=== PATIENT | female | born 2000 | race Caucasian/White ===

== ENCOUNTER 2018-10-27 21:08 | Emergency (ER) | payer OTHER ==
[~2018-10-27] VITALS: Ht 162.6 cm; Wt 99.8 kg
[2018-10-27 21:16] VITALS: BP 110/70
--- NOTE | 2018-10-27 21:20 | NUR ---
TO LOBBY A/W BED , AMBULATORY, EKG DONE ERMD NOTED.
--- NOTE | 2018-10-28 00:25 | NUR ---
PATIENT CALLED TO HAVE VITAL SIGNS REASSESSED. PATIENT LEFT WITHOUT BEING SEEN BY DR. FISCHER. NO FURTHER CARE PROVIDED FOR PATIENT.
== END 2018-10-28 00:25 | disposition left against medical advice (07) ==
LOC: MED 21:08
DX: Z53.21 Procedure and treatment not carried out due to patient leaving prior to being seen by health care provider (principal)
CPT/HCPCS: 93005; 99284

== ENCOUNTER 2019-04-02 09:38 | Inpatient (IN) | payer OTHER ==
[~2019-04-02] VITALS: Ht 160 cm; Wt 110.2 kg
[2019-04-02] MEDS ORDERED: PREN-380 PO (10:45)
[2019-04-02] MEDS ORDERED: CARBOPROST 250 MCG/ML AMP IM PRN (10:45)
[2019-04-02] MEDS ORDERED: PROMETHAZINE 25 MG/ML VIAL IVP PRN (10:45)
[2019-04-02] MEDS ORDERED: METHYLERGONOVINE 0.2 MG/ML AMP IM PRN (10:45)
[2019-04-02 11:29] LABS: BASOPHILS % (AUTO) 0.3 % (0.0-2.0); EOSINOPHILS % (AUTO) 0.2 % (0.0-4.0); HEMATOCRIT 32.1 % (36-48); HEMOGLOBIN 10.7 g/dL (12.0-16.0); LYMPHOCYTES # (AUTO) 1.9 K/uL (2.5-16.5); LYMPHOCYTES % (AUTO) 24.5 % (20.5-51.1); MEAN CORPUSCULAR HEMOGLOBIN 29 pg (27-31); MEAN CORPUSCULAR HGB CONC 33 g/dL (33-37); MEAN CORPUSCULAR VOLUME 87.4 fL (80-94); MONOCYTES # (AUTO) 0.5 K/uL (0.8-1.0); MONOCYTES % (AUTO) 6.2 % (1.7-9.3); NEUTROPHILS # (AUTO) 5.3 K/uL (1.8-7.7); NEUTROPHILS % (AUTO) 68.8 % (42.2-75.2); PLATELET COUNT (AUTO) 332 K/uL (140-450); RED BLOOD CELL COUNT(AUTO) 3.68 MIL/uL (4.20-5.40); RED CELL DISTRIBUTION WIDTH 14.7 % (11.6-13.7); WHITE BLOOD COUNT (AUTO) 7.6 K/uL (4.5-11.0)
[2019-04-02 11:31] LABS: APPEARANCE,URINE SL CLOUDY (CLEAR); BILIRUBIN,URINE NEGATIVE (NEGATIVE); BLOOD, URINE 1+ (NEGATIVE); COLOR,URINE YELLOW (YELLOW); LEUKOCYTE ESTERASE ,URINE 3+ (NEGATIVE); NITRITE, URINE NEGATIVE (NEGATIVE); PH,URINE 6.5 (5.0-9.0); UGLUCOSE NEGATIVE (NEGATIVE)
[2019-04-02 11:41] LABS: RBC,URINE 0-5 /HPF (0-5)
[2019-04-02 11:45] LABS: TOTAL BILIRUBIN 0.3 mg/dL (0.0-1.0)
[2019-04-02 11:50] LABS: ALBUMIN 2.8 g/dL (3.4-5.0); ANION GAP 16.1 (8-16); CARBON DIOXIDE 23.9 mmol/L (21-32)
[2019-04-02 11:56] LABS: CREATININE 0.6 mg/dL (0.6-1.3)
[2019-04-02] MEDS ORDERED: MISOPROSTOL 25 MCG TAB VG SCH (12:00)
[2019-04-02] MEDS: LACTATED RINGERS 1,000 ML IV SCH ×2 (13:17→23:05)
[2019-04-02 13:57] VITALS: BP 128/71
[2019-04-02] MEDS ORDERED: OXYTOCIN 20 UNITS in LACTATED RINGERS 1,000 ML IV SCH (17:15)
[2019-04-02] MEDS ORDERED: fentaNYL 0.05 MG/ML VIAL IVP ONE (17:15)
[2019-04-02] MEDS ORDERED: fentaNYL 0.05 MG/ML VIAL ONE (17:21)
[2019-04-02] MEDS ORDERED: ROPIVACAINE 0.2%/NS PREMIX 100 ML EPI SCH ×2 (18:35→19:20)
[2019-04-02] MEDS ORDERED: EPIDURAL KEYS MC ONE (18:39)
[2019-04-03] MEDS ORDERED: OXYTOCIN 20 UNITS/LR PREMIX 1,000 ML IV ONE ×2 (00:19→13:59)
[2019-04-03] MEDS: LACTATED RINGERS 1,000 ML IV SCH (06:25)
--- NOTE | 2019-04-03 08:42 | NUR ---
PATIENT HAS BEEN SCREENED AND CATEGORIZED LOW NUTRITION RISK. PATIENT WILL BE SEEN WITHIN 7 DAYS OF ADMISSION. 04/09/[address]
[2019-04-03] MEDS ORDERED: MORPHINE PRES FREE 10 MG/10 ML AMP IV ONE (12:44)
[2019-04-03] MEDS ORDERED: MIDAZOLAM 2 MG/2 ML VIAL ONE (12:44)
[2019-04-03] MEDS ORDERED: LIDOCAINE 2% 100 MG/5 ML SYR IVP ONE (12:50)
[2019-04-03] MEDS ORDERED: OXYTOCIN 20 UNITS in DEXT 5% / LACT RING 1,000 ML IV SCH (12:56)
[2019-04-03] MEDS ORDERED: BUPRENORPHINE 0.3 MG/ML VIAL IV PRN (13:00)
[2019-04-03] MEDS ORDERED: SIMETHICONE 80 MG TAB.CHEW PO PRN (13:00)
[2019-04-03] MEDS ORDERED: METHYLERGONOVINE 0.2 MG/ML AMP IM PRN (13:00)
[2019-04-03] MEDS ORDERED: MAGNESIUM CITRATE 300 ML BTL PO SCH (13:00)
[2019-04-03] MEDS ORDERED: TEMAZEPAM 15 MG CAP PO PRN (13:00)
[2019-04-03] MEDS ORDERED: HYDROcodone/APAP 5/325 MG 1 TAB TAB PO PRN (13:00)
[2019-04-03] MEDS ORDERED: OXYTOCIN 20 UNITS in LACTATED RINGERS 1,000 ML IV SCH (13:32)
[2019-04-03] MEDS ORDERED: HYDROmorphone 1 MG/ML AMP IVP PRN (13:35)
[2019-04-03] MEDS ORDERED: MEPERIDINE 25 MG/ML SYR IVP PRN (13:35)
[2019-04-03] MEDS ORDERED: NALBUPHINE 10 MG/ML AMP IVP PRN (13:35)
[2019-04-03] MEDS ORDERED: diphenhydrAMINE 50 MG/ML VIAL IVP PRN ×2 (13:35)
[2019-04-03] MEDS ORDERED: NALOXONE 0.4 MG/ML VIAL IVP PRN ×3 (13:35)
[2019-04-03] MEDS ORDERED: ONDANSETRON 4 MG/2 ML VIAL IVP PRN ×2 (13:35)
[2019-04-03] MEDS ORDERED: KETOROLAC 60 MG/2 ML VIAL IM ONE (14:33)
[2019-04-03] MEDS ORDERED: ceFAZolin 1,000 MG VIAL ONE (20:02)
[2019-04-03] MEDS ORDERED: SENNA 8.6 MG TAB PO SCH (21:00)
[2019-04-03] MEDS: KETOROLAC 30 MG/ML VIAL IM/IVP SCH (21:00)
[2019-04-04] MEDS ORDERED: OXYTOCIN 20 UNITS/LR PREMIX 1,000 ML IV ONE (00:22)
[2019-04-04] MEDS: KETOROLAC 30 MG/ML VIAL IM/IVP SCH ×3 (02:33→14:43)
[2019-04-04] MEDS ORDERED: ceFAZolin 1,000 MG VIAL ONE (05:11)
[2019-04-04 07:03] LABS: BASOPHILS % (AUTO) 0.4 % (0.0-2.0); EOSINOPHILS % (AUTO) 0.3 % (0.0-4.0); HEMATOCRIT 24.9 % (36-48); HEMOGLOBIN 8.4 g/dL (12.0-16.0); LYMPHOCYTES # (AUTO) 1.5 K/uL (2.5-16.5); LYMPHOCYTES % (AUTO) 13.7 % (20.5-51.1); MEAN CORPUSCULAR HEMOGLOBIN 30 pg (27-31); MEAN CORPUSCULAR HGB CONC 34 g/dL (33-37); MONOCYTES # (AUTO) 0.8 K/uL (0.8-1.0); MONOCYTES % (AUTO) 6.8 % (1.7-9.3); NEUTROPHILS # (AUTO) 8.8 K/uL (1.8-7.7); NEUTROPHILS % (AUTO) 78.8 % (42.2-75.2); PLATELET COUNT (AUTO) 245 K/uL (140-450); RED BLOOD CELL COUNT(AUTO) 2.83 MIL/uL (4.20-5.40); RED CELL DISTRIBUTION WIDTH 14.7 % (11.6-13.7); WHITE BLOOD COUNT (AUTO) 11.1 K/uL (4.5-11.0)
[2019-04-04] MEDS: oxyCODONE/APAP 5/325 MG 1 TAB TAB PO PRN (19:45)
[2019-04-04] MEDS: CALCIUM POLYCARBOPHIL 625 MG TAB PO SCH (21:05)
[2019-04-04] MEDS: DOCUSATE SOD/SENNA 50/8.6 MG 1 TAB PO SCH (21:05)
[2019-04-04] MEDS: BISACODYL 5 MG TABEC PO SCH (21:05)
[2019-04-05] MEDS: oxyCODONE/APAP 5/325 MG 1 TAB TAB PO PRN ×3 (02:54→15:35)
[2019-04-05] MEDS: BISACODYL 5 MG TABEC PO SCH ×2 (09:19→21:11)
[2019-04-05] MEDS: CALCIUM POLYCARBOPHIL 625 MG TAB PO SCH ×4 (09:20→21:14)
[2019-04-05] MEDS ORDERED: IBUP-2213 PO (09:38)
[2019-04-05] MEDS ORDERED: FERR-20 PO (09:41)
[2019-04-05] MEDS ORDERED: HYDR-5122 PO (09:43)
[2019-04-05] MEDS: IBUPROFEN 800 MG TAB PO PRN ×2 (10:21→18:09)
[2019-04-05] MEDS: DOCUSATE SOD/SENNA 50/8.6 MG 1 TAB PO SCH (21:13)
[2019-04-06] MEDS: oxyCODONE/APAP 5/325 MG 1 TAB TAB PO PRN (00:45)
[2019-04-06] MEDS ORDERED: CAMERA MC ONE (04:22)
[2019-04-06] MEDS: CALCIUM POLYCARBOPHIL 625 MG TAB PO SCH ×2 (08:17→13:18)
[2019-04-06] MEDS: BISACODYL 5 MG TABEC PO SCH (08:17)
[2019-04-06] MEDS: IBUPROFEN 800 MG TAB PO PRN (10:29)
== END 2019-04-06 15:35 | disposition home or self-care (01) | DRG 540 ==
LOC: MFCC 09:38
PROVIDERS: ADMIT Obstetrics & Gynecology; ATTEND Obstetrics & Gynecology
PROC: 10D00Z1 Extraction of Products of Conception, Low, Open Approach (ICD-10-PCS; principal; 2019-04-03 12:45)
DX: O62.0 Primary inadequate contractions (principal); R71.0 Precipitous drop in hematocrit; O76 Abnormality in fetal heart rate and rhythm complicating labor and delivery; Z37.0 Single live birth; Z3A.39 39 weeks gestation of pregnancy
CPT/HCPCS: 36415; 51702; 59200; 76805; 80053; 81001; 85025; 86592; 86886; 86900; 86901; 87086; J0690; J1885; J2001; J2175; J2250; J2270; J2550; J2590; J2795; J3010; J7060; J7120; Q0092